=== PATIENT | male | born 1990 | race Native Hawaiian/Other Pacific Islander ===

== ENCOUNTER 2020-07-18 18:24 | Emergency (ER) | payer SELFPAY ==
[~2020-07-18] VITALS: Ht 167 cm; Wt 90.9 kg
[2020-07-18] MEDS ORDERED: KETOROLAC 30 MG/ML VIAL IVP ONE (18:45)
[2020-07-18 18:50] LABS: BASOPHILS # (AUTO) 0.1 10^3/uL (0.0-0.1); BASOPHILS % (AUTO) 0 % (0-10); EOSINOPHILS # (AUTO) 0.2 10^3/uL (0.0-0.3); EOSINOPHILS % (AUTO) 1 % (0-10); HEMATOCRIT 46 % (40-54); HEMOGLOBIN 15.6 g/dL (13.3-17.7); LYMPHOCYTES # (AUTO) 3.1 10^3/uL (1.0-4.0); LYMPHOCYTES % (AUTO) 23 % (12-44); MEAN CORPUSCULAR HEMOGLOBIN 31 pg (25-34); MEAN CORPUSCULAR HGB CONC 34 g/dL (32-36); MEAN CORPUSCULAR VOLUME 91 fL (80-99); MONOCYTES # (AUTO) 0.9 10^3/uL (0.0-1.0); MONOCYTES % (AUTO) 7 % (0-12); NEUTROPHILS # (AUTO) 9.6 10^3/uL (1.8-7.8); NEUTROPHILS % (AUTO) 69 % (42-75); PLATELET COUNT 250 10^3/uL (130-400); WHITE BLOOD COUNT 13.9 10^3/uL (4.3-11.0)
[2020-07-18 19:01] LABS: ALBUMIN 4.4 GM/DL (3.2-4.5); CHLORIDE 103 MMOL/L (98-107); POTASSIUM 4.1 MMOL/L (3.6-5.0); SODIUM 137 MMOL/L (135-145)
--- NOTE | 2020-07-18 19:01 | Diagnostic Imaging Report ---
INDICATION: Left ankle pain. History of gout. FINDINGS: Alignment of the ankle appears appropriate. There is no widening of the ankle mortise. The talar dome is normal in morphology. There are no findings of distal tibial or fibular fracture. The visualized bones of the hindfoot demonstrate no acute process. There appear to be some mild tibiotalar osteoarthritic changes. IMPRESSION: Mild tibial talar osteoarthritic changes. No malalignment or acute fracture demonstrated. No bone erosions evident. Dictated by: Dictated on workstation # [id number]
[2020-07-18 19:02] LABS: CALCIUM 9.3 MG/DL (8.5-10.1)
--- NOTE | 2020-07-18 19:02 | Diagnostic Imaging Report ---
INDICATION: Foot pain. History of gout. FINDINGS: Alignment of the foot appears appropriate. There appear to be some minimal subchondral sclerosis within the proximal aspect of the proximal phalanx left great toe. On the oblique view only there is a questionable tiny juxtaarticular erosion. Appearance of the foot otherwise unremarkable. There is no fracture. There is no malalignment. No joint dislocation. IMPRESSION: Minimal arthritic changes of the 1st metatarsophalangeal joint where there is proximal phalanx subchondral sclerosis and a questionable tiny juxtaarticular erosion on the oblique view. This could be seen secondary to the patient's reported history of gout. Dictated by: Dictated on workstation # [id number]
[2020-07-18 19:03] LABS: GLUCOSE 93 MG/DL (70-105); TOTAL PROTEIN 8.1 GM/DL (6.4-8.2)
[2020-07-18 19:04] LABS: CARBON DIOXIDE 21 MMOL/L (21-32)
[2020-07-18 19:05] LABS: BILIRUBIN,TOTAL 0.6 MG/DL (0.1-1.0)
[2020-07-18 19:07] LABS: ALKALINE PHOSPHATASE 68 U/L (40-136); CREATININE SERUM 0.83 MG/DL (0.60-1.30); GFR ESTIMATED > 60
[2020-07-18 19:08] LABS: BUN/CREATININE RATIO 17
[2020-07-18 19:09] LABS: ERYTHROCYTE SEDIMENTATION RATE 13 MM/HR (0-15)
[2020-07-18 19:10] LABS: ALANINE AMINOTRANSFERASE 58 U/L (0-55); URIC ACID 10.3 MG/DL (2.6-7.2)
--- NOTE | 2020-07-18 19:19 | ED Lower Extremity ---
General Chief Complaint: Lower Extremity Stated Complaint: ANKLE PAIN Nursing Triage Note: AMB TO ED C/O L ANKLE PAIN FEELING LIKE IT MAY BE HIS GOUT. Nursing Sepsis Screen: No Definite Risk Source: patient History of Present Illness Date Seen by Provider: Jul 18, 2020 Time Seen by Provider: 18:33 Initial Comments PT ARRIVES VIA POV C/O LEFT ANKLE PAIN AND FOOT PAIN--SINCE THIS MORNING STATES HE HAS GOUT CANNOT STATE WHEN HIS LAST FLARE UP WAS, BUT ONLY STATES "IT COMES AND GOES" NO KNOWN INJURY TOOK 2 TYLENOL THIS AM WITHOUT RELIEF WORKED ALL DAY AT [employer], WITH INCREASING PAIN PCP: NONE Allergies and Home Medications Allergies Coded Allergies: No Known Drug Allergies (Unverified , 07/18/20) Home Medications Colchicine 0.6 Mg Capsule, 0.6 MG PO UD TAKE 2 PILLS AT ONSET OF GOUT FLARE, THEN YOU MAY TAKE 1 PILL IN 1 HOUR, THEN IF NEEDED, TAKE 1 PILL TWICE A DAY Prescribed by: PILAR CARR on 07/18/201920 Indomethacin 50 Mg Capsule, 50 MG PO TID Prescribed by: PILAR CARR on 07/18/201920 Patient Home Medication List Home Medication List Reviewed: Yes Review of Systems Constitutional: no symptoms reported Musculoskeletal: see HPI Skin: no symptoms reported Psychiatric/Neurological: No Symptoms Reported Past Lbruzii-Swqihe-Usngbr Hx Patient Social History Alcohol Use: Regular Use (EVERY WEEKEN D) Recreational Drug Use: Yes (THC) Drug of Choice: THC Smoking Status: Current Everyday Smoker (1 PPD) Type Used: Cigarettes Recent Foreign Travel: No Contact w/Someone Who Travel: No Recent Infectious Disease Expo: No Past Medical History Surgeries: No Respiratory: No Cardiac: No Neurological: No Reproductive Disorders: No Genitourinary: No Gastrointestinal: No Musculoskeletal: Yes Gout Endocrine: No HEENT: No Cancer: No Psychosocial: No Integumentary: No Blood Disorders: No Physical Exam Vital Signs Vital Signs - First Documented 07/18/20 18:30 Temp 35.9 Pulse 85 Resp 18 B/P (MAP) 127/83 (98) Pulse Ox 99 O2 Delivery Room Air Capillary Refill : Less Than 3 Seconds Height, Weight, BMI Height: '" Weight: lbs. oz. kg; 32.00 BMI Method: General Appearance: WD/WN, no apparent distress, other (WALKS IN WITH LIMP) Legs: left leg normal inspection Knees: left knee normal inspection Ankles: left ankle bone tenderness, left ankle limited range of motion, left ankle pain, left ankle soft tissue tenderness, left ankle swelling Feet: left foot bone tenderness, left foot limited range of motion, left foot pain, left foot soft tissue tenderness, left foot swelling, left foot other (PROXIMAL FOOT ) Neurologic/Tendon: normal sensation, normal motor functions, normal tendon functions Neurologic/Psychiatric: no motor/sensory deficits, alert, normal mood/affect, oriented x 3 Skin: normal color (PT IS DARK SKINNED), warm/dry; No ecchymosis; other (NO DISCOLRATION) Progress/Results/Core Measures Results/Orders Lab Results Laboratory Tests Test 07/18/20 18:40 Range/Units White Blood Count 13.9 H 4.3-11.0 10^3/uL Red Blood Count 5.10 4.30-5.52 10^6/uL Hemoglobin 15.6 13.3-17.7 g/dL Hematocrit 46 40-54 % Mean Corpuscular Volume 91 80-99 fL Mean Corpuscular Hemoglobin 31 25-34 pg Mean Corpuscular Hemoglobin Concent 34 32-36 g/dL Red Cell Distribution Width 12.6 10.0-14.5 % Platelet Count 250 130-400 10^3/uL Mean Platelet Volume 10.0 9.0-12.2 fL Immature Granulocyte % (Auto) 0 % Neutrophils (%) (Auto) 69 42-75 % Lymphocytes (%) (Auto) 23 12-44 % Monocytes (%) (Auto) 7 0-12 % Eosinophils (%) (Auto) 1 0-10 % Basophils (%) (Auto) 0 0-10 % Neutrophils # (Auto) 9.6 H 1.8-7.8 10^3/uL Lymphocytes # (Auto) 3.1 1.0-4.0 10^3/uL Monocytes # (Auto) 0.9 0.0-1.0 10^3/uL Eosinophils # (Auto) 0.2 0.0-0.3 10^3/uL Basophils # (Auto) 0.1 0.0-0.1 10^3/uL Immature Granulocyte # (Auto) 0.1 0.0-0.1 10^3/uL Erythrocyte Sedimentation Rate 13 0-15 MM/HR Sodium Level 137 135-145 MMOL/L Potassium Level 4.1 3.6-5.0 MMOL/L Chloride Level 103 98-107 MMOL/L Carbon Dioxide Level 21 21-32 MMOL/L Anion Gap 13 5-14 MMOL/L Blood Urea Nitrogen 14 7-18 MG/DL Creatinine 0.83 0.60-1.30 MG/DL Estimat Glomerular Filtration Rate > 60 BUN/Creatinine Ratio 17 Glucose Level 93 70-105 MG/DL Uric Acid 10.3 H 2.6-7.2 MG/DL Calcium Level 9.3 8.5-10.1 MG/DL Corrected Calcium 9.0 8.5-10.1 MG/DL Total Bilirubin 0.6 0.1-1.0 MG/DL Aspartate Amino Transf (AST/SGOT) 36 H 5-34 U/L Alanine Aminotransferase (ALT/SGPT) 58 H 0-55 U/L Alkaline Phosphatase 68 40-136 U/L Total Protein 8.1 6.4-8.2 GM/DL Albumin 4.4 3.2-4.5 GM/DL My Orders Orders - PILAR CARR DO Ed Iv/Invasive Line Start (07/18/20 18:37) Foot, Left, 3 Views (07/18/20 18:37) Ankle, Left, 3 Views (07/18/20 18:37) Cbc With Automated Diff (07/18/20 18:37) Comprehensive Metabolic Panel (07/18/20 18:37) Erythrocyte Sedimentation Rate (07/18/20 18:37) Uric Acid (07/18/20 18:37) Ketorolac Injection (Toradol Injection) (07/18/20 18:45) Medications Given in ED Current Medications Medications Dose Ordered Sig/Terrell Route Start Time Stop Time Status Last Admin Dose Admin Ketorolac Tromethamine 30 mg ONCE ONCE IVP 07/18/20 18:45 07/18/20 18:46 DC 07/18/20 19:01 30 MG Vital Signs/I&O 07/18/20 18:30 Temp 35.9 Pulse 85 Resp 18 B/P (MAP) 127/83 (98) Pulse Ox 99 O2 Delivery Room Air Blood Pressure Mean: 98 Diagnostic Imaging Comments XRAYS LEFT FOOT AND ANKLE --PER RADIOLOGIST REPORTS AT 1906 IMPRESSION: Minimal arthritic changes of the 1st metatarsophalangeal joint where there is proximal phalanx subchondral sclerosis and a questionable tiny juxtaarticular erosion on the oblique view. This could be seen secondary to the patient's reported history of gout. FINDINGS: Alignment of the ankle appears appropriate. There is no widening of the ankle mortise. The talar dome is normal in morphology. There are no findings of distal tibial or fibular fracture. The visualized bones of the hindfoot demonstrate no acute process. There appear to be some mild tibiotalar osteoarthritic changes. IMPRESSION: Mild tibial talar osteoarthritic changes. No malalignment or acute fracture demonstrated. No bone erosions evident. Reviewed: Reviewed by Me Departure Impression Primary Impression: Gout Disposition: HOME, SELF-CARE Condition: Stable Departure-Patient Inst. Referrals: NO,LOCAL PHYSICIAN (PCP) Primary Care Physician Patient Instructions: Gout (DC) Add. Discharge Instructions: SOAK IN WARM EPSOM SALTS AT 20 MINUTE INTERVALS, THEN APPLY ICE FOR 20 MINUTES ELEVATE FOOT MUCH POSSIBLE ACTIVITIES TOLERATED FOLLOW UP WITH IN 2-3 DAYS IF NO BETTER. CALL TO SCHEDULE AN APPOINTMENT TO ESTABLISH ONGOING MEDICAL CARE All discharge instructions reviewed with patient and/or family. Voiced understanding. Scripts Colchicine (Colchicine) 0.6 Mg Capsule 0.6 MG PO UD, #10 CAP TAKE 2 PILLS AT ONSET OF GOUT FLARE, THEN YOU MAY TAKE 1 PILL IN 1 HOUR, THEN IF NEEDED, TAKE 1 PILL TWICE A DAY Prov: PILAR CARR DO 07/18/20 Indomethacin (Indomethacin) 50 Mg Capsule 50 MG PO TID, #20 CAP Prov: PILAR CARR DO 07/18/20 Work/School Note: Local Medical Staff Listing, Work Release Form Date Seen in the Emergency Department: Jul 18, 2020 Return to Work: Jul 20, 2020 PILAR CARR DO Jul 18, 2020 19:19
[2020-07-18] MEDS ORDERED: COLC0.6C3 PO (19:21)
[2020-07-18] MEDS ORDERED: INDO50CA82 PO (19:21)
[2020-07-18 19:35] VITALS: BP 118/77
== END 2020-07-18 19:39 | disposition home or self-care (01) ==
LOC: ER 18:26
DX: M10.9 Gout, unspecified (principal); F17.210 Nicotine dependence, cigarettes, uncomplicated
CPT/HCPCS: 36415; 73610; 73630; 80053; 84550; 85025; 85652